=== PATIENT | male | born 1950 | race Caucasian/White ===

== ENCOUNTER → 2016-12-31 | Day surgery (SDC) | payer OTHER ==
[~2016-12-31] VITALS: Ht 180.3 cm; Wt 80.5 kg
[2016-12-31 08:04] LABS: HCT 41.8 % (42.0-52.0); HGB 13.7 g/dl (13.2-18.0); MCH 28.5 pg (25.0-31.0); MCHC 32.8 g/dL (32.0-36.0); MCV 86.9 fL (78.0-100.0); MPV 9.1 fL (6.0-9.5); RBC 4.81 M/uL (4.70-6.00); RDW 14.4 % (11.5-14.0); WBC 9.1 K/uL (4.0-10.5)
[2016-12-31 08:28] LABS: ALBUMIN 4.1 g/dL (3.4-4.8); BILIRUBIN - TOTAL 0.3 mg/dL (0.1-1.0); CREATININE 1.2 mg/dL (0.7-1.2); GLOBULIN (CALCULATION) 4.4 g/dL (2.2-4.2); POTASSIUM 3.8 mmol/L (3.5-5.1); TOTAL PROTEIN 8.5 g/dL (6.4-8.3)
== END | disposition home or self-care (01) ==
LOC: FAS 07:25
PROVIDERS: Surgery
DX: K29.50 Unspecified chronic gastritis without bleeding (principal); K21.9 Gastro-esophageal reflux disease without esophagitis; K60.2 Anal fissure, unspecified; E03.9 Hypothyroidism, unspecified; M19.90 Unspecified osteoarthritis, unspecified site; J44.9 Chronic obstructive pulmonary disease, unspecified; Z98.82 Breast implant status; Z98.890 Other specified postprocedural states; Z79.899 Other long term (current) drug therapy
CPT/HCPCS: 36415; 80053; 88305; J1100; J2704